=== PATIENT | female | born 1970 | race Caucasian/White ===

== ENCOUNTER → 2019-03-03 | Outpatient (CLI) | payer OTHER ==
[~2019-03-03] MED LIST: NORCO 5-325 TA1 EACH PO; PRENATAL PO
[2019-03-03 11:05] LABS: HEMATOCRIT 40.7 % (37.0-47.0); HEMOGLOBIN 13.2 gm/dL (12.0-15.0); MCH 28.3 pg (26.0-34.0); MCHC 32.4 g/dL (28.0-37.0); MCV 87.5 fL (80.0-100.0); RBC 4.65 mil/uL (4.20-5.00); RDW 13.8 % (10.5-14.5); WBC 6.8 thou/uL (4.0-11.0)
--- NOTE | 2019-03-04 07:53 | EKG ---
[place] [place] [address] ELECTROCARDIOGRAM REPORT Name: VIVI RICHMONDROCHELLE Christensen [facility]: [facility] [id number] Admission: 03/03/19 Attend Phys: CHRIS - Family physician Discharge: Date of : 66 Report #: [id number] THIS REPORT FOR: //name// [facility] Test Date: 2019-03-03 Test Time: 11:03:09 Pat Name: PATRICIO RICHMOND Department: Room: Gender: F Sales Floor Associate: ANGEL : 1970 Requested By: CHRIS unknown Order Number: [id number] MD: Leonardo Webb Measurements Intervals [place] Rate: 58 P: -10 IN: 205 QRS: 13 QRSD: 87 T: 10 QT: 432 QTc: 425 Interpretive Statements Sinus bradycardia Borderline prolonged IN interval RSR' in V1 or V2, probably normal variant No previous ECG available for comparison Electronically Signed On 03-04-2019 7:53:33 CDT by Leonardo Webb [email or web address] <ELECTRONICALLY SIGNED> By: Leonardo Webb MD, [facility] 03/04/19 [id number] Leonardo Webb MD, FACC /EPI
== END ==
LOC: CV 10:26
DX: R00.1 Bradycardia, unspecified (principal)